=== PATIENT | female | born 1975 | race Caucasian/White ===

== ENCOUNTER 2016-04-15 06:20 | Emergency (ER) | payer OTHER ==
--- NOTE | 2016-04-15 08:58 | ED NURSING NOTES ---
Clinical Report - Nurses [facility] [address] [place] [address] 04/15/2016 6:20 Patient: LIANNA GERARD TRIAGE Triage time 06:23. Acuity: LEVEL 3. Chief Complaint: DIZZINESS and WEAKNESS (pt woke up today at 0500 and felt "off" BS was 54, gave her chocolate and states level came up to 109.). --06:27 Diamond Villalpando R.N. 06:23 04/15/16. BP: 112/67. HR: 79. RR: 16. O2 saturation: 100% on room air. Glover-Nolen pain scale: 4/10. --06:27 Diamond Villalpando R.N. Weight: 66.6 kg stated. Height/Length: 65 inches Per Patient. BMI: 24.5. --06:27 Diamond Villalpando R.N. Medications ALPRAZolam Oral, as needed. Hydrochlorothiazide Oral 50 mg, daily. LaMICtal Oral. MS Contin Oral 15 mg, as needed. Omeprazole Oral 40 mg, daily. Potassium Chloride Oral 10 meq, 3 tabs BID . ProAir HFA Inhalation 2 puffs , prn, last dose 10am . QUEtiapine Fumarate Oral 100 mg, daily. Wellbutrin Oral 100 mg, 2x a day. --06:25 Diamond Villalpando R.N. Allergies No Known Drug Allergy. --06:25 Diamond Villalpando R.N. History Arrived by private vehicle. Historian: patient. Accompanied by family. Primary physician (Allyson). This started today. PAST MEDICAL HX: Immunizations: up-to-date. SOCIAL HX: Never smoker. No alcohol use or drug use. NUTRITIONAL RISK ASSESSMENT: The nutritional risk assessment revealed no deficiencies. FUNCTIONAL ASSESSMENT: Functional assessment: no impairments noted. --06:27 Diamond Villalpando R.N. PROBLEMS: Hypoglycemia. Neuropathy. Anemia. Anxiety Reaction. Hypokalemia. Mental Illness. Bipolar Disorder. --06:26 Diamond Villalpando R.N. ADDITIONAL SURGERIES: Cesearan. Cholecystectomy. . Gastric bypass. Hysterectomy. --06:26 Diamond Villalpando R.N. Interventions ID band on patient. To treatment room. --06:27 Diamond Villalpando R.N. PHYSICAL ASSESSMENT To room via wheelchair. Patient gowned. GENERAL / NEURO / PSYCH: Alert. Oriented X 4. Appears in no acute distress. RESPIRATORY: Respirations not labored. CVS: Capillary refill less than 2 seconds. SKIN: Skin is pale. Skin is warm and dry. --06:29 Diamond Villalpando R.N. NURSING PROGRESS NOTES Finger stick glucose: 73; performed by nurse; result shown to the ED physician. --06:28 Diamond Villalpando R.N. Head of bed elevated. Two patient identifiers checked. Call light placed in reach. Side rails up x 1. Bed placed in lowest position. Brakes of bed on. --06:28 Diamond Villalpando R.N. 06:30 04/15/2016 Site #1 started via IV in the right antecubital space with an 18g angiocath, with aseptic technique and good blood return. Blood drawn: rainbow set. Labeled in the presence of the patient and sent to the lab. Saline lock flushed with 10 mL saline (started by Jonathan Vazquez RN). --06:30 Diamond Villalpando R.N. ( Provided patient with turkey sandwich, sadaf crackers and peanut butter, string cheese and gatorade.). --06:36 Jonathan Huff R.N. 07:07 04/15/2016 Started bag #1 1000 mL IV Fluids IV NS (Saline); bolus of 500 mL over 30 minute(s) then at 150 mL/hr via site #1 via IV pump. Allergies verified and confirmed 5 rights. IV patency established. IV site checked: no pain, redness, or swelling. IV flushed thoroughly pre- and post-medication administration. --07:08 Diamond Villalpando R.N. 07:24 04/15/16. BP: 114/64. HR: 73. RR: 16. O2 saturation: 99%. --07:25 Alyson Plummer R.N. ( Assumed care, report from [facility]. Pt. resting quietly, still slow to respond. States she can swallow po potassium when asked.). --07:25 Alyson Plummer R.N. 07:29 04/15/2016 KCL (Potassium Chloride ER) PO Tablets 40 meq given. --07:29 Alyson Plummer R.N. Finger stick glucose: 95 mg/dL; performed by tech; result shown to the ED physician and RN. --07:52 Juno Magana 08:32 04/15/16. BP: 101/60. HR: 70. RR: 18. O2 saturation: 97%. --08:33 Alyson Plummer R.N. 09:30 04/15/2016 IV Fluids IV NS Discontinued: bag #1 infused upon discharge. --09:30 Alyson Plummer R.N. DISPOSITION / DISCHARGE 09:28 04/15/2016 Site #1 removed. Pressure dressing applied. --09:29 Alyson Plummer R.N. Departure time: 09:23. Condition at departure: stable. Discharge instructions provided and reviewed with the spouse. Reviewed warnings. Reviewed medication(s). The patient was discharged by the physician. She was discharged home and accompanied by spouse. She left the Emergency Department ambulatory and via private vehicle. Spouse driving. --09:29 Alyson Plummer R.N. 09:14 04/15/16. BP: 101/60. HR: 70. RR: 18. O2 saturation: 97%. Pain level now: 0/10. --09:29 Alyson Plummer R.N. Departure time: :29. --09:29 Alyson Plummer R.N. Locked/Released at 04/15/2016 9:30 by Alyson Plummer R.N.
--- NOTE | 2016-04-15 08:58 | ED CLINICAL REPORT ---
Clinical Report - Physicians/Mid Levels [facility] [address] [place] [address] 04/15/2016 6:20 Patient: LIANNA GERARD Time Seen: 06:36. Arrived- By private vehicle. Historian- patient. HISTORY OF PRESENT ILLNESS Chief Complaint: Low blood sugar. This started today and is now gone. It was abrupt in onset. The patient has had fatigue. (patient's reports that when he awoke this morning she was pale and difficult to awaken. He checked her glucose and reports that it was 54. He gave her some pieces of chocolate and he said that a subsequent measurement of her glucose was 109. as far as the patient and her are aware she has not had a workup for these nondiabetic hypoglycemic events). Similar symptoms previously: Several times. REVIEW OF SYSTEMS No chills, fever, sweats, calf pain or chest pain. No cough, difficulty breathing, pedal edema, palpitations or abdominal pain. No constipation, diarrhea, nausea, vomiting or urinary problems. All systems otherwise negative, except as recorded above. PAST HISTORY Problems: Hypoglycemia. UTI - Urinary Tract Infection. Constipation. Neuropathy. Anemia. Chest Pain. Anxiety Reaction. Hypokalemia. Mental Illness. Bipolar Disorder. Additional Surgeries: Cesearan. Cholecystectomy. . Gastric bypass. Hysterectomy. Medications: ALPRAZolam Oral, as needed. Hydrochlorothiazide Oral 50 mg, daily. LaMICtal Oral. MS Contin Oral 15 mg, as needed. Omeprazole Oral 40 mg, daily. Potassium Chloride Oral 10 meq, 3 tabs BID . ProAir HFA Inhalation 2 puffs , prn, last dose 10am . QUEtiapine Fumarate Oral 100 mg, daily. Wellbutrin Oral 100 mg, 2x a day. Allergies: No Known Drug Allergy. SOCIAL HISTORY Never smoker. No alcohol use or drug use. She lives with spouse. Has good social support. FAMILY HISTORY Denies family medical history. ADDITIONAL NOTES The nursing notes have been reviewed. PHYSICAL EXAM Vital Signs: 04/15/2016 06:23 BP: 112/67. HR: 79. RR: 16. O2 saturation: 100%. Glover-Nolen pain scale: 4/10. Have been reviewed. Appearance: Alert. She is somnolent. Eyes: Pupils equal, round and reactive to light. ENT: Pharynx normal. Neck: Normal inspection. Neck supple. No meningeal signs or JVD. CVS: Normal heart rate and rhythm. Heart sounds normal. Respiratory: No respiratory distress. Breath sounds normal. Abdomen: No visible injury. Soft and nontender. Bowel sounds normal. No organomegaly. No mass. Back: Normal inspection. No CVA tenderness. Skin: Skin warm and dry. No rash. Pallor. Extremities: Extremities exhibit normal ROM. No calf tenderness. No lower extremity edema. LABS, X-RAYS, AND EKG Laboratory Tests: UA-Culture if indicated: (VIPUL: 04/15/2016 07:38) ( [facility] Final results Test Result Flag Units (Reference) URINE COLOR YELLOW URINE APPEARANCE CLEAR URINE GLUCOSE NEGATIVE (NEGATIVE) URINE BILIRUBIN NEGATIVE (NEGATIVE) URINE KETONE NEGATIVE (NEGATIVE) URINE SPECIFIC GRAVITY <= 1.005 L (1.010-1.030) URINE PH 6.0 (5.0-8.0) URINE PROTEIN NEGATIVE (NEGATIVE) URINE UROBILINOGEN 1.0 EU/dL (0.2-1.0) URINE NITRITE NEGATIVE (NEGATIVE) URINE BLOOD NEGATIVE (NEGATIVE) URINE LEUK ESTERASE NEGATIVE (NEGATIVE) URINE RBC NONE SEEN rbc/hpf (0-1) URINE WBC 0-1 wbc/hpf (0-1) URINE EPITHELIAL CELLS 3-5 EPI/hpf (0-5) URINE BACTERIA FEW (1+) (NONE SEEN) URINE COMMENT CULT NOT INDICATED URINE CULTURES ARE SET-UP BASED ON THE FOLLOWING CRITERIA:POSITIVE NITRITEPOSITIVE LEUKOCYTE ESTERASEGREATER THAN 10 WHITE BLOOD CELLSMODERATE (2+) OR GREATER BACTERIA CBC w Diff: (VIPUL: 04/15/2016 06:27) ( MsgRcvd 04/15/2016 06:58) Final results Test Result Flag Units (Reference) WHITE BLOOD COUNT 6.5 K/uL (4.5-11.5) RED BLOOD COUNT 4.14 M/uL (4.00-5.20) HEMOGLOBIN 13.6 gm/dL (12.0-16.0) HEMATOCRIT 40.8 % (36.0-46.0) MEAN CELL VOLUME 99 fL (80-100) MEAN CORPUSCULAR HGB 33 pg (26-34) MEAN CORPUSCULAR HGB CONC 33 g/dL (31-37) RED CELL DISTRIBUTION WIDTH 12.8 % (11.6-14.8) PLATELET COUNT 205 K/uL (150-400) NEUTROPHIL % 67.8 % (50-75) LYMPH % 22.0 L % (25-40) MONO % 6.4 % (3-14) EOSINOPHIL % 3.5 % (0-4) BASOPHIL % 0.3 % (0-2) CMP: (VIPUL: 04/15/2016 06:27) ( MsgRcvd 04/15/2016 07:14) Final results Test Result Flag Units (Reference) GLUCOSE 77 mg/dL (70-110) BUN 11 mg/dL (7-18) CREATININE 1.2 mg/dL (0.6-1.3) Estimated GFR 52.36 mL/min Estimated GFR- >60 mL/min Note: Persistent reduction over 3 months in eGFR<60 mL/min/1.73 m2 defines CKD. Patients with eGFR values>=60 mL/min/1.73 m2 may also have CKD if evidence ofpersistent proteinuria. Additional information may be foundat www.kidney.org. SODIUM 143 mmol/L (136-145) POTASSIUM 3.0 L mmol/L (3.5-5.1) CHLORIDE 107 mmol/L (98-107) CARBON DIOXIDE 27 mmol/L (21-32) CALCIUM 8.7 mg/dL (8.5-10.1) TOTAL PROTEIN 6.2 L g/dL (6.4-8.2) ALBUMIN 4.0 g/dL (3.3-5.0) BILIRUBIN, TOTAL 0.5 mg/dL (0.0-1.0) ALKALINE PHOSPHATASE 59 U/L (46-116) AST (SGOT) 21 U/L (15-37) ALT (SGPT) 27 U/L (12-78) LIPASE 87 U/L (73-393) AMYLASE 26 U/L (25-115) . PROGRESS AND PROCEDURES Course of Care: Patient is stable. Discussed case with on-call health care provider, (Titi Gr, PAC for [facility]). Reviewed test results and need for additional work-up. Agreed upon treatment plan. Health care provider will see patient in office. Refers case to other health care provider. Patient/family counseled. Old medical records ordered. Disposition: Discharged. Condition: stable. CLINICAL IMPRESSION Hypoglycemia. INSTRUCTIONS (talk with your primary care provider about whether or not she would benefit from slowly weaning from some of the sedating medications which were taking as discussed). Warnings: Further evaluation is necessary. GENERAL WARNINGS: Return or contact your physician immediately if your condition worsens or changes unexpectedly, if not improving as expected, or if other problems arise. Your Current Medications: CONTINUE TAKING THE FOLLOWING MEDICATIONS: ALPRAZolam Oral : prn. Hydrochlorothiazide Oral : 50 mg daily. LaMICtal Oral. MS Contin Oral : 15 mg, prn. Omeprazole Oral : 40 mg daily. Potassium Chloride Oral : 10 meq 3 tabs BID. ProAir HFA Inhalation : 2 puffs prn, Last: 10am. QUEtiapine Fumarate Oral : 100 mg daily. Wellbutrin Oral : 100 mg 2x a day. Understanding of the discharge instructions verbalized by patient and family. Follow-up with: Akbar Valadez MD, [facility], , [address] [place] [id number] Follow up Tuesday in four days. Call for the next available appointment. (Electronically signed by Shola Falcon MD 04/16/2016 9:33)
--- NOTE | 2016-04-15 08:58 | ED ORDER SUMMARY ---
..... Patient: APRIL, LIANNA Velasquez OrderSheet [facility] VisitID: [id number] [place] [address] 41y, F Registration Date/Time: 04/15/2016 ORDER SHEET Weight: 66.6 kg (stated) Allergies: No Known Drug Allergy GENERAL ORDERS: CBC w Diff Urgent (06:37 04/15/2016 Renea SALAS) (Ack 6:39 IJurca ER Tech1) (6:48 RCollier R.N.) CMP Urgent (06:04/15/2016 Renea SALAS) (Ack 6:39 IJurca ER Tech1) (6:48 RCollier R.N.) UA-Culture if indicated Urgent (:04/15/2016 Renea SALAS) (Ack 6:39 IJurca ER Tech1) Amylase Urgent (06:04/15/2016 Renea SALAS) (Ack 6:39 IJurca ER Tech1) (6:48 RCollier R.N.) Lipase Urgent (06:04/15/2016 Renea SALAS) (Ack 6:39 IJurca ER Tech1) (6:48 RCollier R.N.) MEDICATION ORDERS: KCl PO 40 meq (NOW) (07:18 04/15/2016 Renea SALAS) (Ack 7:24 SStone R.N.) (7:29 SStone R.N.) IV FLUIDS: IV NS : initial bolus 500 mL (1000 mL/hr), then 150 mL/hr for 4h (NOW); Urgent (06:37 04/15/2016 Renea SALAS) (Ack 6:48 RCollier R.N.) (7:08 RCollier R.N.) ORDER SHEET NOTES: [Electronically signed by Alyson Plummer R.N. (09:30 04/15/2016)] [Electronically signed by Shola Falcon MD (09:33 04/16/2016)] [Electronically locked/signed by Alyson Plummer R.N. (09:30 04/15/2016)]
--- NOTE | 2016-04-15 08:58 | ED ORDER SUMMARY ---
..... Patient: APRIL, LIANNA Velasquez OrderSheet [facility] VisitID: [id number] [place] [address] 41y, F Registration Date/Time: 04/15/2016 ORDER SHEET Weight: 66.6 kg (stated) Allergies: No Known Drug Allergy GENERAL ORDERS: CBC w Diff Urgent (06:37 04/15/2016 Renea SALAS) (Ack 6:39 IJurca ER Tech1) (6:48 RCollier R.N.) CMP Urgent (06:04/15/2016 Renea SALAS) (Ack 6:39 IJurca ER Tech1) (6:48 RCollier R.N.) UA-Culture if indicated Urgent (:04/15/2016 Renea SALAS) (Ack 6:39 IJurca ER Tech1) Amylase Urgent (06:04/15/2016 Renea SALAS) (Ack 6:39 IJurca ER Tech1) (6:48 RCollier R.N.) Lipase Urgent (06:04/15/2016 Renea SALAS) (Ack 6:39 IJurca ER Tech1) (6:48 RCollier R.N.) MEDICATION ORDERS: KCl PO 40 meq (NOW) (07:18 04/15/2016 Renea SALAS) (Ack 7:24 SStone R.N.) (7:29 SStone R.N.) IV FLUIDS: IV NS : initial bolus 500 mL (1000 mL/hr), then 150 mL/hr for 4h (NOW); Urgent (06:37 04/15/2016 Renea SALAS) (Ack 6:48 RCollier R.N.) (7:08 RCollier R.N.) ORDER SHEET NOTES: [Electronically signed by Alyson Plummer R.N. (09:30 04/15/2016)] [Electronically signed by Shola Falcon MD (09:33 04/16/2016)] [Electronically locked/signed by Alyson Plummer R.N. (09:30 04/15/2016)]
--- NOTE | 2016-04-15 08:58 | ED CLINICAL REPORT ---
Clinical Report - Physicians/Mid Levels [facility] [address] [place] [address] 04/15/2016 6:20 Patient: LIANNA GERARD Time Seen: 06:36. Arrived- By private vehicle. Historian- patient. HISTORY OF PRESENT ILLNESS Chief Complaint: Low blood sugar. This started today and is now gone. It was abrupt in onset. The patient has had fatigue. (patient's reports that when he awoke this morning she was pale and difficult to awaken. He checked her glucose and reports that it was 54. He gave her some pieces of chocolate and he said that a subsequent measurement of her glucose was 109. as far as the patient and her are aware she has not had a workup for these nondiabetic hypoglycemic events). Similar symptoms previously: Several times. REVIEW OF SYSTEMS No chills, fever, sweats, calf pain or chest pain. No cough, difficulty breathing, pedal edema, palpitations or abdominal pain. No constipation, diarrhea, nausea, vomiting or urinary problems. All systems otherwise negative, except as recorded above. PAST HISTORY Problems: Hypoglycemia. UTI - Urinary Tract Infection. Constipation. Neuropathy. Anemia. Chest Pain. Anxiety Reaction. Hypokalemia. Mental Illness. Bipolar Disorder. Additional Surgeries: Cesearan. Cholecystectomy. . Gastric bypass. Hysterectomy. Medications: ALPRAZolam Oral, as needed. Hydrochlorothiazide Oral 50 mg, daily. LaMICtal Oral. MS Contin Oral 15 mg, as needed. Omeprazole Oral 40 mg, daily. Potassium Chloride Oral 10 meq, 3 tabs BID . ProAir HFA Inhalation 2 puffs , prn, last dose 10am . QUEtiapine Fumarate Oral 100 mg, daily. Wellbutrin Oral 100 mg, 2x a day. Allergies: No Known Drug Allergy. SOCIAL HISTORY Never smoker. No alcohol use or drug use. She lives with spouse. Has good social support. FAMILY HISTORY Denies family medical history. ADDITIONAL NOTES The nursing notes have been reviewed. PHYSICAL EXAM Vital Signs: 04/15/2016 06:23 BP: 112/67. HR: 79. RR: 16. O2 saturation: 100%. Glover-Nolen pain scale: 4/10. Have been reviewed. Appearance: Alert. She is somnolent. Eyes: Pupils equal, round and reactive to light. ENT: Pharynx normal. Neck: Normal inspection. Neck supple. No meningeal signs or JVD. CVS: Normal heart rate and rhythm. Heart sounds normal. Respiratory: No respiratory distress. Breath sounds normal. Abdomen: No visible injury. Soft and nontender. Bowel sounds normal. No organomegaly. No mass. Back: Normal inspection. No CVA tenderness. Skin: Skin warm and dry. No rash. Pallor. Extremities: Extremities exhibit normal ROM. No calf tenderness. No lower extremity edema. LABS, X-RAYS, AND EKG Laboratory Tests: UA-Culture if indicated: (VIPUL: 04/15/2016 07:38) ( [facility] 04/[facility] 08[facility]43) Final results Test Result Flag Units (Reference) URINE COLOR YELLOW URINE APPEARANCE CLEAR URINE GLUCOSE NEGATIVE (NEGATIVE) URINE BILIRUBIN NEGATIVE (NEGATIVE) URINE KETONE NEGATIVE (NEGATIVE) URINE SPECIFIC GRAVITY <= 1.005 L (1.010-1.030) URINE PH 6.0 (5.0-8.0) URINE PROTEIN NEGATIVE (NEGATIVE) URINE UROBILINOGEN 1.0 EU/dL (0.2-1.0) URINE NITRITE NEGATIVE (NEGATIVE) URINE BLOOD NEGATIVE (NEGATIVE) URINE LEUK ESTERASE NEGATIVE (NEGATIVE) URINE RBC NONE SEEN rbc/hpf (0-1) URINE WBC 0-1 wbc/hpf (0-1) URINE EPITHELIAL CELLS 3-5 EPI/hpf (0-5) URINE BACTERIA FEW (1+) (NONE SEEN) URINE COMMENT CULT NOT INDICATED URINE CULTURES ARE SET-UP BASED ON THE FOLLOWING CRITERIA:POSITIVE NITRITEPOSITIVE LEUKOCYTE ESTERASEGREATER THAN 10 WHITE BLOOD CELLSMODERATE (2+) OR GREATER BACTERIA CBC w Diff: (VIPUL: 04/15/2016 06:27) ( MsgRcvd 04/15/2016 06:58) Final results Test Result Flag Units (Reference) WHITE BLOOD COUNT 6.5 K/uL (4.5-11.5) RED BLOOD COUNT 4.14 M/uL (4.00-5.20) HEMOGLOBIN 13.6 gm/dL (12.0-16.0) HEMATOCRIT 40.8 % (36.0-46.0) MEAN CELL VOLUME 99 fL (80-100) MEAN CORPUSCULAR HGB 33 pg (26-34) MEAN CORPUSCULAR HGB CONC 33 g/dL (31-37) RED CELL DISTRIBUTION WIDTH 12.8 % (11.6-14.8) PLATELET COUNT 205 K/uL (150-400) NEUTROPHIL % 67.8 % (50-75) LYMPH % 22.0 L % (25-40) MONO % 6.4 % (3-14) EOSINOPHIL % 3.5 % (0-4) BASOPHIL % 0.3 % (0-2) CMP: (VIPUL: 04/15/2016 06:27) ( MsgRcvd 04/15/2016 07:14) Final results Test Result Flag Units (Reference) GLUCOSE 77 mg/dL (70-110) BUN 11 mg/dL (7-18) CREATININE 1.2 mg/dL (0.6-1.3) Estimated GFR 52.36 mL/min Estimated GFR- >60 mL/min Note: Persistent reduction over 3 months in eGFR<60 mL/min/1.73 m2 defines CKD. Patients with eGFR values>=60 mL/min/1.73 m2 may also have CKD if evidence ofpersistent proteinuria. Additional information may be foundat www.kidney.org. SODIUM 143 mmol/L (136-145) POTASSIUM 3.0 L mmol/L (3.5-5.1) CHLORIDE 107 mmol/L (98-107) CARBON DIOXIDE 27 mmol/L (21-32) CALCIUM 8.7 mg/dL (8.5-10.1) TOTAL PROTEIN 6.2 L g/dL (6.4-8.2) ALBUMIN 4.0 g/dL (3.3-5.0) BILIRUBIN, TOTAL 0.5 mg/dL (0.0-1.0) ALKALINE PHOSPHATASE 59 U/L (46-116) AST (SGOT) 21 U/L (15-37) ALT (SGPT) 27 U/L (12-78) LIPASE 87 U/L (73-393) AMYLASE 26 U/L (25-115) . PROGRESS AND PROCEDURES Course of Care: Patient is stable. Discussed case with on-call health care provider, (Titi Gr, PAC for [facility]). Reviewed test results and need for additional work-up. Agreed upon treatment plan. Health care provider will see patient in office. Refers case to other health care provider. Patient/family counseled. Old medical records ordered. Disposition: Discharged. Condition: stable. CLINICAL IMPRESSION Hypoglycemia. INSTRUCTIONS (talk with your primary care provider about whether or not she would benefit from slowly weaning from some of the sedating medications which were taking as discussed). Warnings: Further evaluation is necessary. GENERAL WARNINGS: Return or contact your physician immediately if your condition worsens or changes unexpectedly, if not improving as expected, or if other problems arise. Your Current Medications: CONTINUE TAKING THE FOLLOWING MEDICATIONS: ALPRAZolam Oral : prn. Hydrochlorothiazide Oral : 50 mg daily. LaMICtal Oral. MS Contin Oral : 15 mg, prn. Omeprazole Oral : 40 mg daily. Potassium Chloride Oral : 10 meq 3 tabs BID. ProAir HFA Inhalation : 2 puffs prn, Last: 10am. QUEtiapine Fumarate Oral : 100 mg daily. Wellbutrin Oral : 100 mg 2x a day. Understanding of the discharge instructions verbalized by patient and family. Follow-up with: Akbar Valadez MD, [facility], , [address] [place] [id number] Follow up Tuesday in four days. Call for the next available appointment. (Electronically signed by Shloa Falcon MD 04/16/2016 9:33)
--- NOTE | 2016-04-16 09:33 | ED MAR SUMMARY ---
..... Medication Administration Record [facility] [address] [place] [address] Patient: LIANNA GERARD Visit ID: [id number] 41y, F Weight: 66.6 kg Height/Length: 65 in BMI: 24.5 ALLERGIES: No Known Drug Allergy Start 07:07 04/15/2016 Diamond Villalpando R.N., Stop 09:30 04/15/2016 Alyson Plummer R.N. Medication Administered: IV NS (SALINE), Dose: IV Fluids, Rate: 150 mL/hr, Bolus: 500 mL over 30 minute(s), Dispensed: 1000 mL bag, Site: #1 right AC. Medication Ordered: IV NS : initial bolus 500 mL (1000 mL/hr), then 150 mL/hr for 4h (NOW); Urgent. Given 07:29 04/15/2016 Alyson Plummer R.N. Medication Administered: KCL [PO] (POTASSIUM CHLORIDE ER), Dose: 40 meq Tablets PO. Medication Ordered: KCl PO 40 meq (NOW).
--- NOTE | 2016-04-16 09:33 | ED MED RECONCILIATION SUMMARY ---
Patient: APRILLIANNA Medication Reconciliation Report [facility] VisitID: [id number] [place] [address] 41y, F Registration Date/Time: 04/15/2016 Weight: 66.6 kg Height/Length: 65 in. BMI: 24.5 ALLERGIES: No Known Drug Allergy The patient's Home Medications are listed below: CONTINUE TAKING THE FOLLOWING MEDICATIONS: ALPRAZolam Oral Hydrochlorothiazide Oral 50 mg, daily LaMICtal Oral MS Contin Oral 15 mg Omeprazole Oral 40 mg, daily Potassium Chloride Oral 10 meq, 3 tabs BID ProAir HFA Inhalation 2 puffs , prn, last dose: 10am QUEtiapine Fumarate Oral 100 mg, daily Wellbutrin Oral 100 mg, 2x a day The source(s) of the original Home Medication information: Not obtained. The following Medications were given to the patient in the Emergency Department: IV NS IV Fluids bolus 500 mL over 30 minute(s), then 150 mL/hr, administered: 04/15/2016 7:07:00 AM KCL [PO] PO 40 meq, administered: 04/15/2016 7:29:00 AM The following Medications were prescribed to the patient: None.
--- NOTE | 2016-04-16 09:33 | ED MAR SUMMARY ---
..... Medication Administration Record [facility] [address] [place] [address] Patient: LIANNA GERARD Visit ID: [id number] 41y, F Weight: 66.6 kg Height/Length: 65 in BMI: 24.5 ALLERGIES: No Known Drug Allergy Start 07:07 04/15/2016 Diamond Villalpando R.N., Stop 09:30 04/15/2016 Alyson Plummer R.N. Medication Administered: IV NS (SALINE), Dose: IV Fluids, Rate: 150 mL/hr, Bolus: 500 mL over 30 minute(s), Dispensed: 1000 mL bag, Site: #1 right AC. Medication Ordered: IV NS : initial bolus 500 mL (1000 mL/hr), then 150 mL/hr for 4h (NOW); Urgent. Given 07:29 04/15/2016 Alyson Plummer R.N. Medication Administered: KCL [PO] (POTASSIUM CHLORIDE ER), Dose: 40 meq Tablets PO. Medication Ordered: KCl PO 40 meq (NOW).
--- NOTE | 2016-04-16 09:33 | ED DISCHARGE INSTRUCTIONS ---
Patient: APRIL, LIANNA Velasquez General Instructions [facility] VisitID: [id number] [place], [place] [id number] 41y, F Registration Date/Time: 04/15/2016 Hypoglycemia. INSTRUCTIONS (talk with your primary care provider about whether or not she would benefit from slowly weaning from some of the sedating medications which were taking as discussed). Warnings: Further evaluation is necessary. GENERAL WARNINGS: Return or contact your physician immediately if your condition worsens or changes unexpectedly, if not improving as expected, or if other problems arise. Your Current Medications: CONTINUE TAKING THE FOLLOWING MEDICATIONS: ALPRAZolam Oral : prn. Hydrochlorothiazide Oral : 50 mg daily. LaMICtal Oral. MS Contin Oral : 15 mg, prn. Omeprazole Oral : 40 mg daily. Potassium Chloride Oral : 10 meq 3 tabs BID. ProAir HFA Inhalation : 2 puffs prn, Last: 10am. QUEtiapine Fumarate Oral : 100 mg daily. Wellbutrin Oral : 100 mg 2x a day. Understanding of the discharge instructions verbalized by patient and family. Follow-up with: Akbar Valadez MD, [facility], , [address] [place] [address] Follow up Tuesday in four days. Call for the next available appointment. ADDITIONAL INFORMATION Hypoglycemic Reaction [Non-Diabetic] You have had an episode of LOW BLOOD SUGAR (hypoglycemia). A single episode of hypoglycemia does not mean that you are diabetic or that this problem will recur. There are many causes for low blood sugar. These include eating highly refined carbohydrate foods, drinking too much alcohol, intense exercise, fatigue, stress, poor diet, and certain illnesses. Some people are sensitive to the following, which can also lower blood sugar: Tobacco, caffeine and certain medicines [aspirin, Haldol (haloperidol), Darvon (propoxyphene), Thorazine (chlorpromazine), Inderal (propranolol), Norpace (disopyramide)]. A class of medicine called beta blockers is used for high blood pressure, rapid heart rates and other conditions. Beta blockers may prevent the early symptoms of low blood sugar. In that case, you would not know that you were having a reaction until your blood sugar becomes dangerously low. If you are taking a beta black and are prone to low blood sugar, talk to your doctor about switching to a different class. The beta black class includes Inderal (propranolol), Tenormin (atenolol), Lopressor (metoprolol), Corgard (nadolol), Trandate & Normodyne (labetalol) and Coreg (carvedilol). Home Care: Rest today and resume a normal diet. Eliminate any of the above known causes where possible. The proper diet for true hypoglycemia (diagnosed with a Glucose Tolerance Test) is high protein (20% of calories), low carbohydrate (50% of calories) and moderate fat (30% of calories) in six small meals per day. If this is your first episode of low blood sugar or if you have not yet been tested with a Glucose Tolerance Test, eat small frequent meals rather than fewer large meals. Limit carbohydrates during the next 1-2 days to avoid recurrence of low blood sugar. Follow up with your doctor as described below. It is important to learn the warning signals your body gives as your blood sugar starts to drop. See below. If you are prone to low blood sugar, carry a source of high sugar food with you in case you get symptoms of low blood sugar again. At the first sign of low blood sugar, eat the sugar source to raise your blood sugar while you seek medical help. Examples of high sugar foods include: Glucose tablets (found at most drug stores), non-diet cola drinks (Coke, Pepsi, etc.), milk chocolate candies, hard candies, orange juice or apple juice with added sugar. If this does not improve your symptoms within twenty minutes, go to an emergency department. If you are prone to severe hypoglycemic spells, wear a medical alert bracelet or carry a card in your wallet describing this condition. In the event that you have a severe hypoglycemic reaction and are unable to give this information, it will help medical personnel provide proper care. Follow Up with your doctor or as advised by our staff for further testing if the cause of your low blood sugar is not clear or if this problem recurs. A Glucose Tolerance Test is the best way to correctly diagnose Hypoglycemia. Get Prompt Medical Attention if any of the following occur: Signs of LOW BLOOD SUGAR: Fatigue, headache Trembling, excess sweating, hunger, feeling anxious or restless Vision changes Drowsiness, weakness, confusion or loss of consciousness You have been given the following additional information: Hypoglycemia, Non Diabetic (Electronically signed by Shola Falcon MD 04/16/2016 9:33)
--- NOTE | 2016-04-16 09:33 | ED MED RECONCILIATION SUMMARY ---
Patient: APRILLIANNA Medication Reconciliation Report [facility] VisitID: [id number] [place] [address] 41y, F Registration Date/Time: 04/15/2016 Weight: 66.6 kg Height/Length: 65 in. BMI: 24.5 ALLERGIES: No Known Drug Allergy The patient's Home Medications are listed below: CONTINUE TAKING THE FOLLOWING MEDICATIONS: ALPRAZolam Oral Hydrochlorothiazide Oral 50 mg, daily LaMICtal Oral MS Contin Oral 15 mg Omeprazole Oral 40 mg, daily Potassium Chloride Oral 10 meq, 3 tabs BID ProAir HFA Inhalation 2 puffs , prn, last dose: 10am QUEtiapine Fumarate Oral 100 mg, daily Wellbutrin Oral 100 mg, 2x a day The source(s) of the original Home Medication information: Not obtained. The following Medications were given to the patient in the Emergency Department: IV NS IV Fluids bolus 500 mL over 30 minute(s), then 150 mL/hr, administered: 04/15/2016 7:07:00 AM KCL [PO] PO 40 meq, administered: 04/15/2016 7:29:00 AM The following Medications were prescribed to the patient: None.
--- NOTE | 2016-04-16 09:33 | ED DISCHARGE INSTRUCTIONS ---
Patient: APRIL, LIANNA Velasquez General Instructions [facility] VisitID: [id number] [place] [id number] 41y, F Registration Date/Time: 04/15/2016 Hypoglycemia. INSTRUCTIONS (talk with your primary care provider about whether or not she would benefit from slowly weaning from some of the sedating medications which were taking as discussed). Warnings: Further evaluation is necessary. GENERAL WARNINGS: Return or contact your physician immediately if your condition worsens or changes unexpectedly, if not improving as expected, or if other problems arise. Your Current Medications: CONTINUE TAKING THE FOLLOWING MEDICATIONS: ALPRAZolam Oral : prn. Hydrochlorothiazide Oral : 50 mg daily. LaMICtal Oral. MS Contin Oral : 15 mg, prn. Omeprazole Oral : 40 mg daily. Potassium Chloride Oral : 10 meq 3 tabs BID. ProAir HFA Inhalation : 2 puffs prn, Last: 10am. QUEtiapine Fumarate Oral : 100 mg daily. Wellbutrin Oral : 100 mg 2x a day. Understanding of the discharge instructions verbalized by patient and family. Follow-up with: Akbar Valadez MD, [facility], , [address] [place] [address] Follow up Tuesday in four days. Call for the next available appointment. ADDITIONAL INFORMATION Hypoglycemic Reaction [Non-Diabetic] You have had an episode of LOW BLOOD SUGAR (hypoglycemia). A single episode of hypoglycemia does not mean that you are diabetic or that this problem will recur. There are many causes for low blood sugar. These include eating highly refined carbohydrate foods, drinking too much alcohol, intense exercise, fatigue, stress, poor diet, and certain illnesses. Some people are sensitive to the following, which can also lower blood sugar: Tobacco, caffeine and certain medicines [aspirin, Haldol (haloperidol), Darvon (propoxyphene), Thorazine (chlorpromazine), Inderal (propranolol), Norpace (disopyramide)]. A class of medicine called beta blockers is used for high blood pressure, rapid heart rates and other conditions. Beta blockers may prevent the early symptoms of low blood sugar. In that case, you would not know that you were having a reaction until your blood sugar becomes dangerously low. If you are taking a beta black and are prone to low blood sugar, talk to your doctor about switching to a different class. The beta black class includes Inderal (propranolol), Tenormin (atenolol), Lopressor (metoprolol), Corgard (nadolol), Trandate & Normodyne (labetalol) and Coreg (carvedilol). Home Care: Rest today and resume a normal diet. Eliminate any of the above known causes where possible. The proper diet for true hypoglycemia (diagnosed with a Glucose Tolerance Test) is high protein (20% of calories), low carbohydrate (50% of calories) and moderate fat (30% of calories) in six small meals per day. If this is your first episode of low blood sugar or if you have not yet been tested with a Glucose Tolerance Test, eat small frequent meals rather than fewer large meals. Limit carbohydrates during the next 1-2 days to avoid recurrence of low blood sugar. Follow up with your doctor as described below. It is important to learn the warning signals your body gives as your blood sugar starts to drop. See below. If you are prone to low blood sugar, carry a source of high sugar food with you in case you get symptoms of low blood sugar again. At the first sign of low blood sugar, eat the sugar source to raise your blood sugar while you seek medical help. Examples of high sugar foods include: Glucose tablets (found at most drug stores), non-diet cola drinks (Coke, Pepsi, etc.), milk chocolate candies, hard candies, orange juice or apple juice with added sugar. If this does not improve your symptoms within twenty minutes, go to an emergency department. If you are prone to severe hypoglycemic spells, wear a medical alert bracelet or carry a card in your wallet describing this condition. In the event that you have a severe hypoglycemic reaction and are unable to give this information, it will help medical personnel provide proper care. Follow Up with your doctor or as advised by our staff for further testing if the cause of your low blood sugar is not clear or if this problem recurs. A Glucose Tolerance Test is the best way to correctly diagnose Hypoglycemia. Get Prompt Medical Attention if any of the following occur: Signs of LOW BLOOD SUGAR: Fatigue, headache Trembling, excess sweating, hunger, feeling anxious or restless Vision changes Drowsiness, weakness, confusion or loss of consciousness You have been given the following additional information: Hypoglycemia, Non Diabetic (Electronically signed by Shola Falcon MD 04/16/2016 9:33)
== END 2016-04-15 09:29 | disposition home or self-care (01) ==
LOC: ED SRH 06:20
DX: E16.2 Hypoglycemia, unspecified (principal); F31.9 Bipolar disorder, unspecified; F41.9 Anxiety disorder, unspecified; Z79.84 Long term (current) use of oral hypoglycemic drugs; Z79.899 Other long term (current) drug therapy
CPT/HCPCS: 90004; 90100; 92235; 92530; 95059